=== PATIENT | male | born 1995 | race Caucasian/White ===

== ENCOUNTER 2016-08-10 20:18 | Emergency (ER) | payer OTHER ==
[2016-08-10 20:27] VITALS: TEMP 98.4
--- NOTE | 2016-08-10 21:02 | EDPHY ---
H & P HPI/ROS: Chief complaint: Left thumb laceration History of present illness: This is a 21-year-old male who presents to the emergency department for a left thumb laceration. Patient reports he cut his left thumb with a piece of glass while preparing food earlier this evening. He does not believe any glass actually stayed in the wound. There has been minimal pain. Persistent oozing of blood. He denies abnormal coolness or paresthesias in the finger. He is moving thumb without difficulty. His tetanus is up-to-date. Smoking Status: Never smoked Physical Exam: General: Alert, nontoxic Skin: 3 cm laceration to the left thumb that approximates well. Exploration does not reveal deep structure or foreign body contamination. Musculoskeletal: Patient is moving his left thumb in the PIP and MCP joint in all kurtz without difficulty. Vascular: Capillary refill brisk in the left thumb. Neurologic: Sensation intact throughout the left thumb using light touch and two-point discrimination. Constitutional: Initial Vital Signs Temperature (C) 36.9 C 08/10/16 20:23 Heart Rate 83 08/10/16 20:23 Respiratory Rate 16 08/10/16 20:23 Blood Pressure 116/80 08/10/16 20:23 O2 Sat (%) 97 08/10/16 20:23 O2 Delivery Mode Room Air Allergies/Adverse Reactions: amoxicillin Allergy (Verified 08/10/16 20:28) Penicillins Allergy (Verified 08/10/16 20:28) duracef Allergy (Uncoded 08/10/16 20:28) Home Medications: Medication Instructions Recorded NK [No Known Home Meds] 08/10/16 MDM/Departure - MDM Procedures: Procedure: Laceration repair. Verbal consent was obtained from the patient. The 3 cm laceration on the left thumb was anesthetized in the usual fashion. The wound was irrigated, draped and explored to its base with a gloved finger. There were no deep structures involved. No tendon injury was identified. The wound was repaired with 5 0 Prolene, 5 simple interrupted sutures. The wound repair was simple. The procedure was performed by myself. ED Course/Re-evaluation: Patient seen under the supervision of my secondary supervising physician Dr. Abdullahi Chavarria. Patient presents to the emergency department for a left thumb laceration. The thumb is neurovascularly intact. He has good musculoskeletal control of the thumb. The wound is explored without evidence of foreign bodies. It is cleaned, repaired and dressed. Patient is discharged home. Home care is discussed. Patient is asked to follow up with Hand surgery for recheck. Return precautions are given. Patient voiced understanding and agreement with plan. - Depart Disposition: Home, Routine, Self-Care Clinical Impression: Finger laceration Qualifiers: Encounter type: initial encounter Qualified Code(s): S61.219A - Laceration without foreign body of unspecified finger without damage to nail, initial encounter Condition: Good Instructions: Finger Laceration (ED) Additional Instructions: Follow-up with a hand doctor for continued evaluation and care Stitches to be removed in 7 days If symptoms worsen or new symptoms develop return to the emergency room for recheck Referrals: NONE *PRIMARY CARE P,. [Primary Care Provider] - As per Instructions Daniela Damon MD [Medical Doctor] - As per Instructions
[2016-08-10 21:52] VITALS: BP 112/71; PULSE 68; RESP 14; O2SAT 96
== END 2016-08-10 21:51 | disposition home or self-care (01) ==
PROC: 0HQGXZZ Repair Left Hand Skin, External Approach (ICD-10-PCS; principal; 2016-08-10)
DX: S61.012A Laceration without foreign body of left thumb without damage to nail, initial encounter (principal); W25.XXXA Contact with sharp glass, initial encounter